=== PATIENT | female | born 1950 | race Caucasian/White ===

== ENCOUNTER 2021-01-15 13:48 | Inpatient (IN) | payer BC, MEDICAID ==
[~2021-01-15] VITALS: Ht 157.5 cm; Wt 60.1 kg
[~2021-01-15 13:48] MED LIST: ASPI-1497 PO; ATOR40TA70 PO; BANOPHEN PO; CITA20TA75 PO; ENAL5TAB21 PO; GABA-532 PO; IBUP-2030 PO; MECL-159 PO; METF-416 PO; OMEP20TA2 PO; SITA50TA3 PO
[2021-01-15] MEDS ORDERED: ONDANSETRON 4MG ODT PO STA (14:29)
[2021-01-15] MEDS ORDERED: MORPHINE SULFATE 4 MG/ML CPJ (NOT FOR IM USE) IV STA (14:40)
[2021-01-15] MEDS ORDERED: SODIUM CHLORIDE 0.9% 1,000 ML IV ONE (14:45)
[2021-01-15 15:54] LABS: CHLORIDE 87 mEq/L (98-107)
[2021-01-15 15:57] LABS: PROTHROMBIN TIME 11.1 sec (9.6-11.0)
[2021-01-15 16:00] LABS: ETHANOL BLOOD < 10 mg/dL
[2021-01-15 16:14] LABS: BASOPHILS % 0.8 % (0.0-2.0); EOSINOPHILS % 1.5 % (0.0-5.0); HEMATOCRIT. 29.3 % (36.0-48.0); HEMOGLOBIN. 9.4 g/dL (12.0-16.0); LYMPHOCYTES % 20.3 % (20.0-50.0); MEAN CORPUSCULAR HEMOGLOBIN 21.3 pg (28.0-32.0); MEAN CORPUSCULAR VOLUME 66.2 fL (81.0-99.0); MEAN PLATELET VOLUME 8.7 fl (7.4-10.4); MONOCYTES % 9.2 % (2.0-8.0); NEUTROPHILS % 68.2 % (40.0-76.0); PLATELET 284 x1000/uL (130-400); RED BLOOD CELL COUNT 4.42 mill/uL (4.2-5.4); RED CELL DISTRIBUTION WIDTH 19.5 % (11.6-14.6)
[2021-01-15] MEDS ORDERED: MECLIZINE 25MG TABLET PO ONE (17:15)
[2021-01-15] MEDS ORDERED: METOCLOPRAMIDE HCL 10MG/2ML VIAL IV ONE (17:15)
[2021-01-15 17:30] LABS: CLARITY URINE CLEAR (CLEAR); COLOR URINE YELLOW (YELLOW); KETONES URINE TRACE (NEGATIVE); LEUKOCYTE ESTERASE URINE NEGATIVE (NEGATIVE); NITRITE URINE NEGATIVE (NEGATIVE); OCCULT BLOOD URINE NEGATIVE (NEGATIVE); PROTEIN URINE NEGATIVE (NEGATIVE); SPECIFIC GRAVITY URINE 1.013 (1.005-1.030); UROBILINOGEN URINE 0.2 E.U./dL (0.2-1.0)
[2021-01-15 17:35] LABS: PLATELET ESTIMATE NORMAL
[2021-01-15 17:45] LABS: *BARBITURATES SCREEN URINE NEGATIVE (NEGATIVE)
[2021-01-15 17:46] LABS: *AMPHETAMINES SCREEN URINE NEGATIVE (NEGATIVE); *BENZODIAZEPINES SCREEN URINE NEGATIVE (NEGATIVE); *COCAINE SCREEN URINE NEGATIVE (NEGATIVE)
[2021-01-15 17:47] LABS: METHADONE URINE SCREEN NEGATIVE (NEGATIVE); OPIATES URINE SCREEN PRESUMTIVE POSITIVE (NEGATIVE); PHENCYCLIDINE URINE SCREEN NEGATIVE (NEGATIVE)
[2021-01-15 17:48] LABS: CANNABINOID URINE SCREEN NEGATIVE (NEGATIVE)
[2021-01-15 18:22] LABS: CHLORIDE 91 mEq/L (98-107)
[2021-01-15] MEDS: ACETAMINOPHEN 325MG TABLET PO PRN (23:00)
[2021-01-15] MEDS ORDERED: IOHEXOL-300 100 ML BOTTLE ONE (23:52)
[2021-01-16] MEDS: ACETAMINOPHEN 325MG TABLET PO PRN (06:17)
[2021-01-16] MEDS ORDERED: POTASSIUM CHLORIDE 20MEQ TABLET SR PO NR (10:00)
[2021-01-16] MEDS ORDERED: ONDANSETRON HCL 4MG/2ML INJ IV PRN (10:00)
[2021-01-16] MEDS ORDERED: MECLIZINE 25MG TABLET PO PRN (10:00)
[2021-01-16] MEDS: SODIUM CHLORIDE 0.9% 1,000 ML IV SCH ×2 (11:39→22:34)
[2021-01-16 17:30] VITALS: BP 118/49
[2021-01-16 18:38] VITALS: BP 118/49
[2021-01-16 20:00] VITALS: BP 117/60
[2021-01-17] VITALS: BP 102/45
[2021-01-17] MEDS: ACETAMINOPHEN 325MG TABLET PO PRN (00:28)
[2021-01-17] MEDS: ZOLPIDEM TARTRATE 5MG TABLET PO PRN ×2 (01:54→19:48)
[2021-01-17 04:00] VITALS: BP 110/60
[2021-01-17 07:18] LABS: BASOPHILS % 1.2 % (0.0-2.0); EOSINOPHILS % 2.1 % (0.0-5.0); HEMATOCRIT. 31.2 % (36.0-48.0); HEMOGLOBIN. 9.7 g/dL (12.0-16.0); LYMPHOCYTES % 29.7 % (20.0-50.0); MEAN CORPUSCULAR HEMOGLOBIN 21.3 pg (28.0-32.0); MEAN CORPUSCULAR VOLUME 68.7 fL (81.0-99.0); MEAN PLATELET VOLUME 8.7 fl (7.4-10.4); MONOCYTES % 13.9 % (2.0-8.0); NEUTROPHILS % 53.1 % (40.0-76.0); PLATELET 305 x1000/uL (130-400); RED BLOOD CELL COUNT 4.54 mill/uL (4.2-5.4); RED CELL DISTRIBUTION WIDTH 19.5 % (11.6-14.6)
[2021-01-17 07:27] LABS: CHLORIDE 100 mEq/L (98-107)
[2021-01-17 08:00] VITALS: BP 110/48
[2021-01-17] MEDS ORDERED: PNEUMOCOCCAL 23-VAL P-SAC VAC 0.5 ML IM ONE (09:00)
[2021-01-17] MEDS: SODIUM CHLORIDE 0.9% 1,000 ML IV SCH (09:50)
[2021-01-17] MEDS: MECLIZINE 25MG TABLET PO PRN (11:02)
[2021-01-17 12:00] VITALS: BP 98/58
[2021-01-17 16:00] VITALS: BP 114/50
[2021-01-17 20:00] VITALS: BP_SYST 115; BP_SYST 116; BP_SYST 135; BP_DIAS 52; BP_DIAS 55; BP_DIAS 56
[2021-01-18] VITALS: BP 125/60
[2021-01-18] MEDS: SODIUM CHLORIDE 0.9% 1,000 ML IV SCH ×2 (02:00→15:46)
[2021-01-18 04:00] VITALS: BP 118/65
[2021-01-18 08:00] VITALS: BP 121/47
[2021-01-18] MEDS: MECLIZINE 25MG TABLET PO PRN (08:27)
[2021-01-18] MEDS: ACETAMINOPHEN 325MG TABLET PO PRN ×2 (08:31→23:01)
[2021-01-18 12:00] VITALS: BP_SYST 118; BP_SYST 138; BP_SYST 146; BP_DIAS 40; BP_DIAS 55; BP_DIAS 61
[2021-01-18 16:00] VITALS: BP 125/55
[2021-01-18 20:00] VITALS: BP 111/50
[2021-01-18] MEDS: ZOLPIDEM TARTRATE 5MG TABLET PO PRN (23:01)
[2021-01-19] VITALS: BP 124/58
[2021-01-19 04:00] VITALS: BP 160/70
[2021-01-19] MEDS: SODIUM CHLORIDE 0.9% 1,000 ML IV SCH ×2 (05:12→18:10)
[2021-01-19 08:00] VITALS: BP 136/62
[2021-01-19 11:54] VITALS: BP_SYST 104; BP_SYST 123; BP_SYST 124; BP_DIAS 49; BP_DIAS 53; BP_DIAS 54
[2021-01-19 15:55] VITALS: BP 105/63
[2021-01-19] MEDS ORDERED: OMEPRAZOLE 20MG CAPSULE EXTENDED RELEASE PO SCH (18:00)
[2021-01-19] MEDS: OMEPRAZOLE 20MG CAPSULE EXTENDED RELEASE PO SCH (18:10)
[2021-01-19 20:00] VITALS: BP 117/58
[2021-01-19] MEDS: ZOLPIDEM TARTRATE 5MG TABLET PO PRN (21:43)
[2021-01-20] VITALS: BP 126/52
[2021-01-20 03:59] VITALS: BP 119/59
[2021-01-20] MEDS: OMEPRAZOLE 20MG CAPSULE EXTENDED RELEASE PO SCH (06:29)
[2021-01-20] MEDS: SODIUM CHLORIDE 0.9% 1,000 ML IV SCH (06:30)
[2021-01-20 08:00] VITALS: BP 107/44
[2021-01-20 12:00] VITALS: BP 123/50
[2021-01-20 12:11] VITALS: BP 123/50
== END 2021-01-20 12:45 | disposition home or self-care (01) | DRG 74 ==
LOC: ER 13:50 → EDBEDREQ 20:00 → EDBEDREQTM 20:00 → MICUSO 23:58 → 7EST 01-16 15:00
PROVIDERS: ADMIT Internal Medicine; ATTEND Internal Medicine
PROC: 4A10X4Z Monitoring of Central Nervous Electrical Activity, External Approach (ICD-10-PCS; principal; 2021-01-19)
DX: G90.8 Other disorders of autonomic nervous system (principal); E87.1 Hypo-osmolality and hyponatremia; E87.8 Other disorders of electrolyte and fluid balance, not elsewhere classified; D64.9 Anemia, unspecified; E11.9 Type 2 diabetes mellitus without complications; E78.00 Pure hypercholesterolemia, unspecified; E78.5 Hyperlipidemia, unspecified; F17.200 Nicotine dependence, unspecified, uncomplicated; I11.9 Hypertensive heart disease without heart failure; J45.909 Unspecified asthma, uncomplicated; Z90.49 Acquired absence of other specified parts of digestive tract; Z79.899 Other long term (current) drug therapy; Z79.82 Long term (current) use of aspirin
CPT/HCPCS: 36415; 70551; 71045; 74177; 80048; 80053; 80305; 80320; 81003; 83605; 83880; 84484; 85025; 86850; 86900; 90732; 93005; 95816; 97162; 99285; C1893; J2270; J2405; J2765; J7030; J8597; Q0162; Q9967; G0480

== ENCOUNTER 2021-04-30 09:35 | Inpatient (IN) | payer BC, MEDICAID ==
[~2021-04-30] VITALS: Ht 152.4 cm; Wt 61.7 kg
[2021-04-30 10:54] LABS: HEMATOCRIT. 35.2 % (36.0-48.0); HEMOGLOBIN. 10.6 g/dL (12.0-16.0); MEAN CORPUSCULAR HEMOGLOBIN 21.4 pg (28.0-32.0); MEAN CORPUSCULAR VOLUME 71.1 fL (81.0-99.0); RED BLOOD CELL COUNT 4.96 mill/uL (4.2-5.4); RED CELL DISTRIBUTION WIDTH 19.7 % (11.6-14.6)
[2021-04-30 10:55] LABS: CHLORIDE 104 mEq/L (98-107)
[2021-04-30 12:05] LABS: PLATELET ESTIMATE NORMAL
[2021-04-30 14:00] VITALS: BP 122/58
[2021-04-30] MEDS ORDERED: SITA100T11 PO (15:35)
[2021-04-30] MEDS ORDERED: ATOR-2 PO (15:35)
[2021-04-30] MEDS ORDERED: DEXTROSE 50% WATER 50ML SYRINGE IV PRN (15:45)
[2021-04-30] MEDS ORDERED: NITROGLYCERIN 0.4MG TABLET SL SL PRN (15:45)
[2021-04-30 16:00] VITALS: BP 109/50
[2021-04-30] MEDS ORDERED: *PATIENT'S OWN MEDICATION STORAGE XX SCH (16:45)
[2021-04-30] MEDS ORDERED: fluconazole TP (17:14)
[2021-04-30] MEDS ORDERED: METR60GE4 TP (17:14)
[2021-04-30] MEDS: BLOOD SUGAR DIAGNOSTIC STRIP TEST SCH ×2 (17:22→20:52)
[2021-04-30] MEDS: METFORMIN HCL 500MG TABLET PO SCH (17:22)
[2021-04-30] MEDS: INSULIN LISPRO 100 UNITS/ML SUBCUT SCH ×2 (17:26→21:00)
[2021-04-30] MEDS ORDERED: ACETAMINOPHEN 325MG TABLET PO PRN (17:30)
[2021-04-30 17:31] LABS: BASOPHILS % 0.9 % (0.0-2.0); EOSINOPHILS % 4.7 % (0.0-5.0); HEMATOCRIT. 28.7 % (36.0-48.0); LYMPHOCYTES % 23.1 % (20.0-50.0); MEAN CORPUSCULAR HEMOGLOBIN 22.2 pg (28.0-32.0); MEAN CORPUSCULAR VOLUME 70.5 fL (81.0-99.0); MEAN PLATELET VOLUME 8.1 fl (7.4-10.4); MONOCYTES % 9.7 % (2.0-8.0); NEUTROPHILS % 61.6 % (40.0-76.0); PLATELET 303 x1000/uL (130-400); RED BLOOD CELL COUNT 4.07 mill/uL (4.2-5.4); RED CELL DISTRIBUTION WIDTH 20.4 % (11.6-14.6)
[2021-04-30 17:39] LABS: CHLORIDE 106 mEq/L (98-107)
[2021-04-30] MEDS ORDERED: FLUO15CR2 TP (18:14)
[2021-04-30 20:00] VITALS: BP 100/59
[2021-04-30] MEDS: METRONIDAZOLE GEL 1% TOP SCH (20:50)
[2021-04-30] MEDS: ATORVASTATIN CALCIUM 40MG TABLET PO SCH (20:51)
[2021-04-30] MEDS: HYDROCODONE/ACETAMINOPHEN 5/325MG TABLET PO PRN (20:51)
[2021-04-30] MEDS: GABAPENTIN 300MG CAPSULE PO SCH (20:52)
[2021-04-30] MEDS: METOPROLOL TARTRATE 25MG TABLET PO SCH (20:52)
[2021-04-30] MEDS: FLUOCINONIDE 0.05% TOP SCH (20:53)
[2021-05-01] VITALS: BP 112/56
[2021-05-01 04:00] VITALS: BP 102/50
[2021-05-01] MEDS: METFORMIN HCL 500MG TABLET PO SCH ×2 (07:00→18:04)
[2021-05-01] MEDS: OMEPRAZOLE 20MG CAPSULE EXTENDED RELEASE PO SCH (07:00)
[2021-05-01] MEDS: BLOOD SUGAR DIAGNOSTIC STRIP TEST SCH ×4 (07:00→20:37)
[2021-05-01] MEDS: INSULIN LISPRO 100 UNITS/ML SUBCUT SCH ×4 (07:08→20:57)
[2021-05-01] MEDS: HYDROCODONE/ACETAMINOPHEN 5/325MG TABLET PO PRN ×3 (07:09→23:52)
[2021-05-01 08:00] VITALS: BP 106/57
[2021-05-01] MEDS: ASPIRIN 81MG EC TABLET PO SCH (09:00)
[2021-05-01] MEDS: METRONIDAZOLE GEL 1% TOP SCH ×2 (09:24→17:46)
[2021-05-01] MEDS: METOPROLOL TARTRATE 25MG TABLET PO SCH ×2 (09:24→20:37)
[2021-05-01] MEDS: FLUOCINONIDE 0.05% TOP SCH ×2 (09:24→17:46)
[2021-05-01] MEDS: ONDANSETRON HCL 4MG/2ML INJ IV PRN (09:38)
[2021-05-01 12:00] VITALS: BP 116/64
[2021-05-01 16:00] VITALS: BP 99/51
[2021-05-01 20:00] VITALS: BP 96/33
[2021-05-01] MEDS: GABAPENTIN 300MG CAPSULE PO SCH (20:38)
[2021-05-01] MEDS: ATORVASTATIN CALCIUM 40MG TABLET PO SCH (20:38)
[2021-05-02] VITALS: BP 116/52
[2021-05-02] MEDS ORDERED: MORPHINE SULFATE 2 MG/ML CPJ (NOT FOR IM USE) IV PRN (03:30)
[2021-05-02 04:00] VITALS: BP 103/45
[2021-05-02] MEDS ORDERED: NALOXONE HCL 0.4 MG/ML 1ML VIAL IV PRN (04:00)
[2021-05-02] MEDS: OMEPRAZOLE 20MG CAPSULE EXTENDED RELEASE PO SCH (05:42)
[2021-05-02] MEDS: BLOOD SUGAR DIAGNOSTIC STRIP TEST SCH ×4 (05:42→21:04)
[2021-05-02] MEDS: INSULIN LISPRO 100 UNITS/ML SUBCUT SCH ×4 (05:42→21:00)
[2021-05-02] MEDS: ONDANSETRON HCL 4MG/2ML INJ IV PRN (05:43)
[2021-05-02] MEDS: METFORMIN HCL 500MG TABLET PO SCH ×2 (07:40→17:22)
[2021-05-02 08:00] VITALS: BP 112/40
[2021-05-02] MEDS: ASPIRIN 81MG EC TABLET PO SCH (08:09)
[2021-05-02] MEDS: METOPROLOL TARTRATE 25MG TABLET PO SCH ×2 (08:26→21:04)
[2021-05-02] MEDS: METRONIDAZOLE GEL 1% TOP SCH ×2 (09:03→17:00)
[2021-05-02] MEDS: FLUOCINONIDE 0.05% TOP SCH ×2 (09:04→17:00)
[2021-05-02 12:00] VITALS: BP 103/42
[2021-05-02] MEDS ORDERED: HEPARIN 1000 UNITS/ML 10ML ONE (13:12)
[2021-05-02] MEDS ORDERED: LIDOCAINE HCL 1% 10 MG/ML 10ML VIAL ONE ×2 (13:12→13:17)
[2021-05-02] MEDS ORDERED: MIDAZOLAM HCL 2 MG/2 ML VIAL ONE ×2 (13:13→18:44)
[2021-05-02] MEDS ORDERED: IODIXANOL 320MG/ML 100 ML BOTTLE IV ONE (13:13)
[2021-05-02] MEDS ORDERED: FENTANYL CITRATE/PF 50MCG/ML 2ML VIAL ONE ×2 (13:13→18:41)
[2021-05-02] MEDS ORDERED: LIDOCAINE HCL/EPINEPHRINE 1%-EPI 1:100,000 20 ML VIAL ONE (14:24)
[2021-05-02] MEDS ORDERED: VANCOMYCIN HCL 1 GM/VIAL ONE (14:25)
[2021-05-02] MEDS ORDERED: POLYMYXIN B SULFATE 500000 UNITS/VIAL ONE (14:25)
[2021-05-02] MEDS ORDERED: SODIUM CHLORIDE 0.45% 250 ML IV ONE (15:00)
[2021-05-02] MEDS ORDERED: ATROPINE SULFATE 1MG/10ML SYR IV PRN (15:00)
[2021-05-02] MEDS ORDERED: ISOSORBIDE MONONITRATE 30MG TABLET SR 24HR PO SCH (15:00)
[2021-05-02] MEDS ORDERED: PROPOFOL 200MG/20ML VIAL IV ONE (18:43)
[2021-05-02 20:00] VITALS: BP 117/45
[2021-05-02] MEDS ORDERED: HYDROCODONE/ACETAMINOPHEN 5/325MG TABLET PO NR (20:00)
[2021-05-02 20:43] VITALS: BP 117/45
[2021-05-02] MEDS: ATORVASTATIN CALCIUM 40MG TABLET PO SCH (21:04)
[2021-05-02] MEDS: GABAPENTIN 300MG CAPSULE PO SCH (21:04)
[2021-05-02] MEDS ORDERED: DIPHENOXYLATE/ATROPINE 2.5/0.025MG TABLET PO PRN (22:30)
== END 2021-05-02 23:23 | disposition home or self-care (01) | DRG 287 ==
LOC: ER 10:23 → ENRESERV 12:57 → 8WST 14:41
PROVIDERS: ADMIT Internal Medicine; ATTEND Internal Medicine
PROC: B211YZZ Fluoroscopy of Multiple Coronary Arteries using Other Contrast (ICD-10-PCS; principal; 2021-05-02)
PROC: 4A023N7 Measurement of Cardiac Sampling and Pressure, Left Heart, Percutaneous Approach (ICD-10-PCS; 2021-05-02)
PROC: B54MZZA Ultrasonography of Right Upper Extremity Veins, Guidance (ICD-10-PCS; 2021-05-02)
DX: I25.110 Atherosclerotic heart disease of native coronary artery with unstable angina pectoris (principal); E11.9 Type 2 diabetes mellitus without complications; E78.00 Pure hypercholesterolemia, unspecified; I10 Essential (primary) hypertension; J45.909 Unspecified asthma, uncomplicated; D64.9 Anemia, unspecified; E78.5 Hyperlipidemia, unspecified; Z20.822 Contact with and (suspected) exposure to COVID-19; M19.90 Unspecified osteoarthritis, unspecified site; D72.829 Elevated white blood cell count, unspecified; Z79.82 Long term (current) use of aspirin; Z79.899 Other long term (current) drug therapy; Z79.84 Long term (current) use of oral hypoglycemic drugs; Z79.1 Long term (current) use of non-steroidal anti-inflammatories (NSAID)
CPT/HCPCS: 36415; 71045; 80048; 80053; 80061; 82962; 83036; 83880; 84484; 85025; 87426; 93005; 93306; 93458; 99285; C1769; C1887; C1893; J1644; J2250; J2270; J2405; J2704; J3010; J3370; J3490; Q9967